=== PATIENT | male | born 1990 | race African-American/Black ===

== ENCOUNTER 2019-10-29 12:58 | Inpatient (IN) | payer SELFPAY ==
[2019-10-29] MEDS ORDERED: PIPERACILLIN/TAZOBACTAM 4.5 GM VIAL IV ONE (13:16)
[2019-10-29] MEDS ORDERED: AZITHROMYCIN INJ 500 MG VIAL IV ONE (13:20)
--- NOTE | 2019-10-29 13:29 | ER Document Report ---
ED General - General Chief Complaint: Overdose Stated Complaint: POSSIBLE OVERDOSE Time Seen by Provider: 10/29/19 13:04 - HPI Notes: Chief complaint: Respiratory distress History of present illness: Previously healthy 29-year-old male taking no regular medications no known allergies has recently been abusing Percocet that he buys off the street. He developed respiratory depression and altered mental status this morning and EMS was called to his residence and he received Narcan intranasal. He was revived with this and they remained on scene for a brief period of time and he refused transport. They subsequently received a follow-up call stating the patient was in respiratory distress. When they arrived he was hypoxemic in the 80s. They put him on nasal O2 and transported him here. He arrived here on 4 L of nasal O2 and was tachypneic and had an O2 sat of around 80%. He denies any other significant medical history. States he has had nonproductive cough since he was given Narcan. He denies chest pain. He is a cigarette smoker. Regularly smokes marijuana. Denies alcohol consumption today. - Related Data Allergies/Adverse Reactions: No Known Allergies Allergy (Verified 10/29/19 13:47) Past Medical History - General Information source: Patient, Emergency Med Personnel, [facility] Records - Social History Smoking Status: Current Every Day Smoker Frequency of alcohol use: Social Drug Abuse: Marijuana, Prescription drugs Occupation: Unemployed Lives with: Spouse/Significant other Family History: Reviewed & Not Pertinent - Medical History Medical History: Negative Surgical Hx: Negative Review of Systems - Review of Systems Notes: Constitutional: Negative for fever. HENT: Negative for sore throat. Eyes: Negative for visual changes. Cardiovascular: Negative for chest pain. Respiratory: As per HPI. Gastrointestinal: Negative for abdominal pain, vomiting or diarrhea. Genitourinary: Negative for dysuria. Musculoskeletal: Negative for back pain. Skin: Negative for rash. Neurological: Negative for headaches, weakness or numbness. 10 point ROS negative except as marked above and in HPI. Physical Exam - Vital signs Vitals: Pulse Ox 79 L 10/29/19 12:58 - Notes Notes: GENERAL: Slender male of approximately stated age who is shivering and appears in acute distress. SKIN: Cool and moist. Good turgor no rashes. HEAD: Normocephalic atraumatic. EYES: PERRLA. EOMI. Conjunctivae and sclerae clear. EARS: CANALS AND TMS CLEAR. NOSE: CLEAR. MOUTH: Moist mucosa. Good dentition. No stridor or edema. No drooling. NECK: Supple. No masses or thyromegaly. No adenopathy. Carotids 2+ without bruits. No JVD. BACK: Symmetrical without tenderness. CHEST: Patient is tachypneic with labored respirations and mild use of accessory muscles. He has coarse rhonchi bilaterally. He has a rattling cough and is bringing up small amount of bloody sputum. HEART: Tachycardic regular rhythm. No murmur gallop or rub. ABDOMEN: Soft nontender without masses, organomegaly or rebound. Bowel sounds normally active. No bruits. GENITALIA: Deferred. EXTREMITIES: No edema. No calf tenderness. Cap refill less than 1.5 seconds. Dorsalis pedis and posterior tibial pulses 3+ and symmetrical. NEUROLOGICAL: GCS 15. Alert and oriented x3. Fluent speech. Cranial nerves II through XII intact. Sensorimotor and cerebellar normal. Normal tone. PSYCHIATRIC: Anxious affect. Course - Re-evaluation Re-evalutation: 10/29/19 13:37 Previously healthy male status post Narcan administration via EMS now presenting with respiratory distress, hypoxemia and hemoptysis. Chest x-ray shows patchy infiltrates bilaterally. Patient is shivering. We are awaiting a rectal temperature. My differential diagnosis this time includes COVID-19 pneumonia, pulmonary aspiration syndrome, sepsis, ARDS, pulmonary edema and community-acquired pneumonia and pulmonary embolus.. Sepsis protocol initiated. COVID swab requested. Patient has been started on BiPAP. IV Zosyn and azithromycin. 10/29/19 13:40 10/29/19 14:28 Patient is doing reasonably well on BiPAP. He still coughing up small amounts of blood. Case discussed with ICU attending recreation technician Dr. Wooten who will see the patient for ICU admission. 10/29/19 15:27 Dr. Wooten is seen the patient in the emergency department and prefers that he go to [facility]. He agrees with current management. He did not feel a chest CT was needed at this point he thinks the primary problem is negative pressure pulmonary edema. Patient has been presented to Dr. Ovalles who will admit to [facility]. - Vital Signs Vital signs: Temp Pulse Resp BP Pulse Ox 98 F 118 H 35 H 117/80 100 10/29/19 13:06 10/29/19 13:06 10/29/19 15:02 10/29/19 15:02 10/29/19 15:02 - Laboratory Result Diagrams: 10/29/19 13:15 10/29/19 13:15 Laboratory results interpreted by me: 10/29/19 10/29/19 10/29/19 13:15 13:15 13:30 WBC 12.9 H RBC 6.00 H MCH 26.8 L Lymph % (Auto) 12.1 L Absolute Neuts (auto) 10.8 H Seg Neutrophils % 83.5 H ABG pH ABG pO2 Potassium 3.4 L Glucose 189 H Lactic Acid 4.7 H AST 149 H ALT 81 H 10/29/19 13:30 WBC RBC MCH Lymph % (Auto) Absolute Neuts (auto) Seg Neutrophils % ABG pH 7.32 L ABG pO2 76.9 L Potassium Glucose Lactic Acid AST ALT - EKG Interpretation by Me When compared to previous EKG there are: Other - Twelve-lead EKG from 1311 hrs. reviewed contemporaneously by me showing sinus tachycardia with a rate of 124. He has a QRS axis of +85 degrees. Intervals are normal. There are no acute ST/T wave changes present. Interpretation: Sinus tachycardia. No prior tracing for comparison. Indication for current study: Tachycardia. Critical Care Note - Critical Care Note Total time excluding time spent on procedures (mins): 65 - BiPAP initiated. Sep sis protocol. Discharge - Discharge Clinical Impression: Bilateral pneumonia, Acute respiratory failure Condition: Critical Disposition: ADMITTED INPATIENT Admitting Provider: Charlette (Hospitalist) Unit Admitted: [facility]
[2019-10-29 13:32] LABS: ABSOLUTE BASOPHILS # (AUTO) 0.1 10^3/uL (0.0-0.2); ABSOLUTE LYMPHOCYTES (AUTO) 1.6 10^3/uL (0.5-4.7); ABSOLUTE MONOCYTES (AUTO) 0.5 10^3/uL (0.1-1.4); ABSOLUTE NEUT (AUTO) 10.8 10^3/uL (1.7-8.2); BASOPHILS % (AUTO) 0.5 % (0-2); EOSINOPHILS % (AUTO) 0.1 % (0-6); HEMATOCRIT 48.7 % (37.9-51.0); HEMOGLOBIN 16.1 g/dL (13.5-17.0); LYMPHOCYTES % (AUTO) 12.1 % (13-45); MEAN CORPUSCULAR HEMOGLOBIN 26.8 pg (27.0-33.4); MEAN CORPUSCULAR HGB CONC 33.1 g/dL (32.0-36.0); MEAN CORPUSCULAR VOLUME 81 fl (80-97); MONOCYTES % (AUTO) 3.8 % (3-13); PLATELET COUNT 180 10^3/uL (150-450); RED CELL DISTRIBUTION WIDTH 13.1 % (11.5-14.0); SEGMENTED NEUTROPHILS % (AUTO) 83.5 % (42-78); TOTAL CELLS COUNTED % (AUTO) 100 %; WHITE BLOOD COUNT 12.9 10^3/uL (4.0-10.5)
[2019-10-29] MEDS ORDERED: DEXAMETHASONE SOD PHOS INJ 10 MG/1 ML VIAL IV ONE (13:44)
[2019-10-29 13:45] LABS: INTERNATIONAL RATION (INR) 0.97; PROTHROMBIN TIME 13.1 SEC (11.4-15.4)
--- NOTE | 2019-10-29 13:50 | RADIOLOGY REPORT (SQ) ---
EXAM DESCRIPTION: CHEST SINGLE VIEW IMAGES COMPLETED DATE/TIME: 10/29/2019 1:41 pm REASON FOR STUDY: bed 1 -abn breath sounds COMPARISON: None. EXAM PARAMETERS: NUMBER OF VIEWS: One view. TECHNIQUE: Single frontal radiographic view of the chest acquired. RADIATION DOSE: NA LIMITATIONS: None. FINDINGS: LUNGS AND PLEURA: Hazy reticulonodular airspace disease throughout both lungs. MEDIASTINUM AND HILAR STRUCTURES: No masses. Contour normal. HEART AND VASCULAR STRUCTURES: Heart normal in size. Normal vasculature. BONES: No acute findings. HARDWARE: None in the chest. OTHER: No other significant finding. IMPRESSION: HAZY AIRSPACE DISEASE THROUGHOUT BOTH LUNGS. TECHNICAL DOCUMENTATION: JOB ID: [id number] 2010 [employer]- All Rights Reserved Reading location - IP/workstation name: [email or web address]
[2019-10-29 13:51] LABS: ALBUMIN 4.5 g/dL (3.5-5.0); ALKALINE PHOSPHATASE 95 U/L (38-126); ANION GAP 9 (5-19); ASPARTATE AMINO TRANSFERASE 149 U/L (17-59); BILIRUBIN,TOTAL 0.5 mg/dL (0.2-1.3); BLOOD UREA NITROGEN 14 mg/dL (7-20); CALCIUM 9.2 mg/dL (8.4-10.2); CARBON DIOXIDE 26 mmol/L (22-30); CHLORIDE 102 mmol/L (98-107); GLUCOSE 189 mg/dL (75-110); POTASSIUM 3.4 mmol/L (3.6-5.0); TOTAL PROTEIN 7.5 g/dL (6.3-8.2)
[2019-10-29 13:56] LABS: ARTERIAL BLOOD BASE EXCESS -3.6 mmol/L; ARTERIAL BLOOD FIO2 100%; ARTERIAL BLOOD H2CO3 1.35 mmol/L (1.05-1.35); ARTERIAL BLOOD HCO3 22.6 mmol/L (20-24); ARTERIAL BLOOD O2 SATURATION 94.4 % (94-98); ARTERIAL BLOOD PCO2 44.7 mmHg (35-45); ARTERIAL BLOOD PH 7.32 (7.35-7.45); ARTERIAL BLOOD PO2 76.9 mmHg (80-100)
[2019-10-29 14:05] LABS: TROPONIN I 0.05 ng/mL
[2019-10-29] MEDS ORDERED: VANCOMYCIN HCL INJ 1000 MG VIAL IV ONE (14:16)
[2019-10-29] MEDS ORDERED: DEXAMETHASONE SOD PHOSPHATE INJ 4 MG/1 ML VIAL ONE (14:20)
[2019-10-29] MEDS ORDERED: ACETAMINOPHEN 325 MG TABLET PO PRN (16:50)
[2019-10-29] MEDS ORDERED: DEXTROSE 50%-WATER 25 GM/50 ML DISP.SYRIN IV PRN ×2 (16:50)
[2019-10-29] MEDS ORDERED: DEXTROSE 40% GEL 15 GM TUBE PO PRN ×2 (16:50)
[2019-10-29] MEDS ORDERED: GLUCAGON,HUMAN RECOMB 1 MG INJ SUBCUT PRN (16:50)
[2019-10-29] MEDS ORDERED: ONDANSETRON 4 MG TAB.RAPDIS PO PRN (16:58)
--- NOTE | 2019-10-29 17:10 | PDOC CONSULTATION ---
Consultation Consult Date: 10/29/19 Provider Consulted: CAMPBELL SALGADO Consult reason:: Possible hematemesis History of Present Illness Admission Date/PCP: 10/29/19 14:41 History of Present Illness: GAGAN LERMA is a 29 year old male I was called by Dr Ovalles on this patient presented to the ED with respiratory distress and was initially referred to ICU for admission patient was seen and felt that he could be managed on the floor Dr Ovalles requesting consult patient could be possibly having hematemesis but the history as noted from the ED attending was hemoptysis his H/H is stable patient likely had overdose on narcotics and initially refused to go to ED he had been givene Narcan in the field but called and presented with further SOB, while GI work up is requested the issue is respiratory he is not a candidate for sedation for now as that would cloud exactly what is happening ICU attending feels it could be negative pressure pulmonary edema there appears to be a COvid 19 testing in progress will wait on results follow up clinically medications to reduce nausea follow up H/H EGD to be at some point once all the other issues have been addressed no history of alcohol use and so not likely to be due varices at best a Leandra Burnham tear, EGD only if has significant drop in his H/H Social History Lives with: Spouse/Significant other Smoking Status: Current Every Day Smoker Family History Family History: Reviewed & Not Pertinent Parental Family History Reviewed: Yes Children Family History Reviewed: Unknown Sibling(s) Family History Reviewed.: Unknown Medication/Allergy Allergies/Adverse Reactions: No Known Allergies Allergy (Verified 10/29/19 13:47) Review of Systems Constitutional: PRESENT: weakness. ABSENT: fever(s), headache(s) Eyes: ABSENT: visual disturbances Ears: ABSENT: hearing changes Nose, Mouth, and Throat: ABSENT: mouth pain, sore throat Respiratory: PRESENT: dyspnea, hemoptysis Gastrointestinal: PRESENT: nausea. ABSENT: vomiting Genitourinary: ABSENT: dysuria, hematuria Musculoskeletal: ABSENT: deformity, joint swelling Integumentary: ABSENT: pruritus Neurological: PRESENT: tingling. ABSENT: syncope, tremor(s), vertigo Endocrine: ABSENT: polydipsia, polyphagia, polyuria Physical Exam Vital Signs: Temp Pulse Resp BP Pulse Ox 98 F 118 H 35 H 117/80 100 10/29/19 13:06 10/29/19 13:06 10/29/19 15:02 10/29/19 15:02 10/29/19 15:02 General appearance: PRESENT: mild distress Head exam: PRESENT: atraumatic, normocephalic Eye exam: PRESENT: EOMI, nystagmus, PERRLA, scleral icterus Mouth exam: PRESENT: moist, neck supple Neck exam: ABSENT: meningismus, tenderness, thyromegaly Respiratory exam: PRESENT: symmetrical. ABSENT: tachypnea, wheezes Cardiovascular exam: PRESENT: RRR, +S1, +S2 GI/Abdominal exam: ABSENT: Mendosa's sign, rebound Extremities exam: ABSENT: joint swelling Musculoskeletal exam: PRESENT: full ROM Neurological exam: ABSENT: altered Skin exam: ABSENT: urticaria, vesicles Results Laboratory Results: 10/29/19 13:15 10/29/19 13:15 10/29/19 10/29/19 10/29/19 13:15 13:15 13:15 WBC 12.9 H RBC 6.00 H Hgb 16.1 Hct 48.7 MCV 81 MCH 26.8 L MCHC 33.1 RDW 13.1 Plt Count 180 Seg Neutrophils % 83.5 H Carbonic Acid HCO3/H2CO3 Ratio ABG pH ABG pCO2 ABG pO2 ABG HCO3 ABG O2 Saturation ABG Base Excess FiO2 Sodium 137.0 Potassium 3.4 L Chloride 102 Carbon Dioxide 26 Anion Gap 9 BUN 14 Creatinine 1.12 Est GFR ( Amer) > 60 Glucose 189 H Lactic Acid Calcium 9.2 Magnesium Cancelled Total Bilirubin 0.5 AST 149 H Alkaline Phosphatase 95 Total Protein 7.5 Albumin 4.5 10/29/19 10/29/19 13:30 13:30 WBC RBC Hgb Hct MCV MCH MCHC RDW Plt Count Seg Neutrophils % Carbonic Acid 1.35 HCO3/H2CO3 Ratio 16:1 ABG pH 7.32 L ABG pCO2 44.7 ABG pO2 76.9 L ABG HCO3 22.6 ABG O2 Saturation 94.4 ABG Base Excess -3.6 FiO2 100% Sodium Potassium Chloride Carbon Dioxide Anion Gap BUN Creatinine Est GFR ( Amer) Glucose Lactic Acid 4.7 H Calcium Magnesium Total Bilirubin AST Alkaline Phosphatase Total Protein Albumin 10/29/19 13:15 Troponin I 0.050 NT-Pro-B Natriuret Pep 16 Impressions: Chest X-Ray 10/29/19 00:00 IMPRESSION: HAZY AIRSPACE DISEASE THROUGHOUT BOTH LUNGS. Assessment & Plan - Diagnosis (1) Hematemesis Plan: Respiratory issues have not been stabilized yet patient will need to be breathing comfortably off oxygen with a sat>95% drug screen to see if any other drugs besides narcotics causing his hypoxia await Covid 19 testing check H/H monitor for symptoms antiemetics to reduce nausea, Zofran can be used patient currently not a candidate for for sedation by anesthesia for now will follow spoke with Dr Ovalles - Time Time Spent: 50 to 70 Minutes
--- NOTE | 2019-10-29 17:15 | PDOC H&P ---
History of Present Illness Admission Date/PCP: 10/29/19 14:41 Patient complains of: dyspnea History of Present Illness: GAGAN LERMA is a 29 year old male who presents to the hospital with complaints of dyspnea. Earlier today, patient got a narcotic tablet which he was told was oxycodone 30 mg off a friend. He ingested it and later became unresponsive. EMS was called and they administered intranasal Narcan after which he became responsive. At that point he declined being brought to the hospital because he felt fine. However shortly after EMS was called back to the location because he was feeling dyspneic. At that time he was found to be hypoxic and brought to the hospital. In the hospital, patient was 79% on room air on initial presentation. He had to be placed on 100% BiPAP. Patient also noted to have some episodes of hematemesis. He denies any abdominal pain no previous vomiting episodes earlier today or prior. Denies prior episodes of hematemesis. Also denies prior episodes of dyspnea prior to the incident today. Denies any history of cirrhosis. Denies alcohol use. Past Medical History Medical History: None Past Surgical History Past Surgical History: Reports: None Social History Lives with: Spouse/Significant other Smoking Status: Current Every Day Smoker Frequency of Alcohol Use: None Hx Recreational Drug Use: Yes - Advance Directive Resuscitation Status: Full Code Family History Family History: None Parental Family History Reviewed: Yes Children Family History Reviewed: NA Sibling(s) Family History Reviewed.: NA Medication/Allergy Allergies/Adverse Reactions: No Known Allergies Allergy (Verified 10/29/19 13:47) Review of Systems Constitutional: ABSENT: fatigue, fever(s) Eyes: ABSENT: visual disturbances Ears: ABSENT: hearing changes Cardiovascular: ABSENT: chest pain Respiratory: PRESENT: dyspnea. ABSENT: cough Gastrointestinal: PRESENT: hematemesis. ABSENT: abdominal pain, hematochezia, melena, nausea Genitourinary: ABSENT: dysuria Integumentary: ABSENT: diaphoresis Neurological: ABSENT: confusion, dizziness Endocrine: ABSENT: polyuria Physical Exam Vital Signs: Temp Pulse Resp BP Pulse Ox 98 F 118 H 35 H 117/80 100 10/29/19 13:06 10/29/19 13:06 10/29/19 15:02 10/29/19 15:02 10/29/19 15:02 General appearance: PRESENT: no acute distress, cooperative Head exam: PRESENT: atraumatic Mouth exam: PRESENT: moist, neck supple, tongue midline. ABSENT: laceration Throat exam: PRESENT: post pharyngeal erythema - Mild but no evidence of laceration Neck exam: ABSENT: JVD Respiratory exam: PRESENT: clear to auscultation diamond, symmetrical, unlabored. ABSENT: tachypnea, wheezes Cardiovascular exam: PRESENT: RRR, +S1, +S2. ABSENT: tachycardia GI/Abdominal exam: PRESENT: soft. ABSENT: rebound, rigid, tenderness Extremities exam: ABSENT: pedal edema Neurological exam: PRESENT: alert, awake, oriented to person, oriented to place, oriented to time, oriented to situation Psychiatric exam: ABSENT: agitated, anxious Focused psych exam: ABSENT: pressured speech Skin exam: ABSENT: jaundice, pallor Results Laboratory Results: 10/29/19 13:15 10/29/19 13:15 10/29/19 10/29/19 10/29/19 13:15 13:15 13:15 WBC 12.9 H RBC 6.00 H Hgb 16.1 Hct 48.7 MCV 81 MCH 26.8 L MCHC 33.1 RDW 13.1 Plt Count 180 Seg Neutrophils % 83.5 H Carbonic Acid HCO3/H2CO3 Ratio ABG pH ABG pCO2 ABG pO2 ABG HCO3 ABG O2 Saturation ABG Base Excess FiO2 Sodium 137.0 Potassium 3.4 L Chloride 102 Carbon Dioxide 26 Anion Gap 9 BUN 14 Creatinine 1.12 Est GFR ( Amer) > 60 Glucose 189 H Lactic Acid Calcium 9.2 Magnesium Cancelled Total Bilirubin 0.5 AST 149 H Alkaline Phosphatase 95 Total Protein 7.5 Albumin 4.5 10/29/19 10/29/19 13:30 13:30 WBC RBC Hgb Hct MCV MCH MCHC RDW Plt Count Seg Neutrophils % Carbonic Acid 1.35 HCO3/H2CO3 Ratio 16:1 ABG pH 7.32 L ABG pCO2 44.7 ABG pO2 76.9 L ABG HCO3 22.6 ABG O2 Saturation 94.4 ABG Base Excess -3.6 FiO2 100% Sodium Potassium Chloride Carbon Dioxide Anion Gap BUN Creatinine Est GFR ( Amer) Glucose Lactic Acid 4.7 H Calcium Magnesium Total Bilirubin AST Alkaline Phosphatase Total Protein Albumin 10/29/19 13:15 Troponin I 0.050 NT-Pro-B Natriuret Pep 16 Impressions: Chest X-Ray 10/29/19 00:00 IMPRESSION: HAZY AIRSPACE DISEASE THROUGHOUT BOTH LUNGS. Assessment and Plan - Diagnosis (1) Acute respiratory failure with hypoxia Is this a current diagnosis for this admission?: Yes Plan: Patient significantly hypoxic on presentation. Placed on BiPAP. During my encounter with patient I took BiPAP off and patient seemed to be maintaining sats >90% even on room air throughout encounter. However later informed by patient's nurse that patient desatted and needed to go back on nasal cannula then back on BiPAP. Currently on BiPAP 02/22 100% but we will try to wean as tolerated Chest x-ray shows interstitial opacities bilaterally Has been evaluated by property accountant who states that patient does not need ICU level of care at this time and the patient likely has negative pressure pulmonary edema following his overdose I will leave patient on BiPAP tonight and try some diuresis. Has been tested for COVID 19 in ER. Received antibiotics in the ER which I will hold for now Check stat CT chest (2) Hematemesis Qualifiers: Nausea presence: without nausea Qualified Code(s): K92.0 - Hematemesis Is this a current diagnosis for this admission?: Yes Plan: This seems to be the first time patient has had this episode. He has denied any history of cirrhosis and does not consume alcohol. He did have a significant amount of hematemesis seen plastic bag Have consulted gastroenterology who recommends conservative management for possible Leandra-Burnham tear for now I will put patient on Protonix IV Keep on telemetry. Type and screen. Monitor closely. Keep n.p.o. for now NGT lavage (3) Opioid overdose Qualifiers: Encounter type: initial encounter Injury intent: accidental or unintentional Qualified Code(s): T40.2X1A - Poisoning by other opioids, accidental (unintentional), initial encounter Is this a current diagnosis for this admission?: Yes Plan: Seems to have overdosed from a pill which he got off his friend and thought it was oxycodone. He is uncertain if it was in fact something else Check urine drug screen Currently is mentating well and fully awake and alert and conversational - Time Time Spent with patient: 35 or more minutes Anticipated Discharge Disposition: Home, Self Care Anticipated Discharge Timeframe: within 48 hours
[2019-10-29] MEDS ORDERED: FUROSEMIDE INJ/PF 40 MG/4 ML SDV IV ONE (17:30)
[2019-10-29] MEDS ORDERED: FUROSEMIDE INJ/PF 100 MG/10 ML SDV IV ONE ×2 (19:00→23:59)
[2019-10-29] MEDS: PANTOPRAZOLE SODIUM 40 MG VIAL IV SCH (19:11)
--- NOTE | 2019-10-29 19:30 | EKG REPORT ---
SEVERITY:- OTHERWISE NORMAL ECG - SINUS TACHYCARDIA : Confirmed by: Geo Spears MD 29-Oct-2019 19:29:15
[2019-10-29 20:03] LABS: APPEARANCE,URINE SLIGHTLY-CLOUDY; BILIRUBIN,URINE NEGATIVE (NEGATIVE); COLOR,URINE YELLOW; GLUCOSE, URINE 50 mg/dL (NEGATIVE); KETONES,URINE NEGATIVE (NEGATIVE); PROTEIN,URINE 100 mg/dL (NEGATIVE); UROBILINOGEN,URINE NEGATIVE mg/dL (<2.0)
[2019-10-29 20:13] LABS: URINE AMPHETAMINES SCREEN NEGATIVE; URINE BARBITURATES SCREEN NEGATIVE; URINE BENZODIAZEPINES SCREEN NEGATIVE; URINE COCAINE SCREEN NEGATIVE; URINE METHADONE SCREEN NEGATIVE; URINE PHENCYCLIDINE SCREEN NEGATIVE
[2019-10-29 20:16] LABS: URINE MARIJUANA (THC) SCREEN UNCONFIRMED POSITIVE
--- NOTE | 2019-10-29 23:23 | RADIOLOGY REPORT (SQ) ---
CT angiogram chest with contrast on 10/29/2019 at 10:43 PM CLINICAL INDICATION: Shortness of breath TECHNIQUE: Multiple axial images are obtained throughout the chest following the administration of IV contrast. Computer generated 3D reconstructions/MIPS were performed. This exam was performed according to our departmental dose-optimization program, which includes automated exposure control, adjustment of the mA and/or kV according to patient size and/or use of iterative reconstruction technique. Total DLP is 673.24 mGy*cm. COMPARISON: None FINDINGS: There is no thoracic aortic aneurysm or dissection. Limited visualized upper abdomen is unremarkable. There is no pleural or pericardial effusion. There are no filling defects within the pulmonary arteries to suggest pulmonary embolus. There are fairly extensive bilateral groundglass predominant opacities that appear to be more central predominant but do also involve the periphery of the lungs with some airspace disease in the left lower lobe. There is also some crazy paving in the left upper lung. Findings are consistent with likely infectious etiology. Differential diagnosis would include viral infections. There is some pneumomediastinum with air along the right aspect of the distal esophagus and seen well just below the level of the amrais on axial image 58 extending over into the left hilar region. No pneumothorax is noted. No bony abnormality is noted. IMPRESSION: 1. No evidence of pulmonary embolus. 2. Commonly reported imaging features of COVID 19 pneumonia are present. Other processes such as influenza pneumonia and organizing pneumonia, as can be seen with drug toxicity and connective tissue disease, can cause similar imaging pattern. [PneTyp] 3. Pneumomediastinum also raises a question of COVID 19 as the etiology. If there is high clinical concern for esophageal injury then consider water-soluble esophagram or repeat CT of the chest following oral administration of water-soluble contrast.
[2019-10-29 23:51] LABS: HEMATOCRIT 47.3 % (37.9-51.0); HEMOGLOBIN 15.6 g/dL (13.5-17.0); MEAN CORPUSCULAR HEMOGLOBIN 26.6 pg (27.0-33.4); MEAN CORPUSCULAR HGB CONC 32.9 g/dL (32.0-36.0); MEAN CORPUSCULAR VOLUME 81 fl (80-97); PLATELET COUNT 153 10^3/uL (150-450); RED BLOOD COUNT 5.86 10^6/uL (4.35-5.55); WHITE BLOOD COUNT 21.6 10^3/uL (4.0-10.5)
[2019-10-30] MEDS: PANTOPRAZOLE SODIUM 40 MG VIAL IV SCH ×2 (05:46→18:02)
[2019-10-30 05:47] LABS: HEMATOCRIT 47.5 % (37.9-51.0); MEAN CORPUSCULAR HGB CONC 33.7 g/dL (32.0-36.0); MEAN CORPUSCULAR VOLUME 80 fl (80-97); PLATELET COUNT 163 10^3/uL (150-450); RED BLOOD COUNT 5.94 10^6/uL (4.35-5.55); RED CELL DISTRIBUTION WIDTH 12.8 % (11.5-14.0); WHITE BLOOD COUNT 20.9 10^3/uL (4.0-10.5)
[2019-10-30 06:10] LABS: ANION GAP 8 (5-19); BLOOD UREA NITROGEN 17 mg/dL (7-20); CALCIUM 9.9 mg/dL (8.4-10.2); CARBON DIOXIDE 30 mmol/L (22-30); CHLORIDE 99 mmol/L (98-107); GLUCOSE 133 mg/dL (75-110); PHOSPHORUS 3.3 mg/dL (2.5-4.5)
[2019-10-30 06:22] LABS: POTASSIUM 4.6 mmol/L (3.6-5.0)
--- NOTE | 2019-10-30 08:02 | Progress Note ---
Provider Note Provider Note: H and H stable over multiple draws ? hemoptysis vs hematemesis BUN /Creat ratio does not suggest UGIB Covid 19 test pending no further symptoms antiemetic and PPI
[2019-10-30] MEDS: ASCORBIC ACID 500 MG TABLET PO SCH (10:27)
[2019-10-30] MEDS: ZINC SULFATE 220 MG CAPSULE PO SCH (10:27)
[2019-10-30] MEDS: CHOLECALCIFEROL (D3) 1,000 UNIT (25 MCG) TABLET PO SCH (10:27)
[2019-10-30] MEDS ORDERED: AMPICILLIN SODIUM/SULBACTAM NA 3 GM in NORMAL SALINE 100 ML IV SCH (12:00)
[2019-10-30] MEDS ORDERED: FUROSEMIDE INJ/PF 40 MG/4 ML SDV IV ONE (12:00)
[2019-10-30] MEDS ORDERED: AMPICILLIN SOD/SULBACTAM 3 GM VIAL IV SCH (12:00)
--- NOTE | 2019-10-30 12:06 | PDOC PROGRESS REPORT ---
Subjective Progress Note for:: 10/30/19 Subjective:: Patient is breathing a lot better today. Able to de-escalate him to 3 L nasal cannula this morning. He also states that his hematemesis has resolved and has not had any recurrence since yesterday evening. Denies any previous dyspnea prior to the event yesterday. Reason For Visit: HYPOXIA,UGI BLEED, DRUG OVERDOSE Physical Exam Vital Signs: Temp Pulse Resp BP Pulse Ox 97.8 F 75 18 127/81 H 100 10/30/19 04:00 10/30/19 07:00 10/30/19 04:00 10/30/19 04:00 10/30/19 04:00 Intake & Output 10/29/19 10/30/19 10/31/19 06:59 06:59 06:59 Intake Total 0 Output Total 400 Balance -400 Weight 102.9 kg General appearance: PRESENT: no acute distress, cooperative Neck exam: ABSENT: JVD Respiratory exam: PRESENT: clear to auscultation diamond, symmetrical, unlabored. ABSENT: tachypnea, wheezes Cardiovascular exam: PRESENT: RRR, +S1, +S2. ABSENT: tachycardia GI/Abdominal exam: PRESENT: soft. ABSENT: rebound, rigid, tenderness Extremities exam: ABSENT: pedal edema Neurological exam: PRESENT: alert, awake, oriented to person, oriented to place, oriented to time, oriented to situation Psychiatric exam: PRESENT: appropriate affect. ABSENT: agitated, anxious Focused psych exam: ABSENT: pressured speech Skin exam: ABSENT: jaundice Results Laboratory Results: 10/30/19 05:21 10/30/19 05:21 10/29/19 10/29/19 10/29/19 13:15 13:15 13:15 WBC 12.9 H RBC 6.00 H Hgb 16.1 Hct 48.7 MCV 81 MCH 26.8 L MCHC 33.1 RDW 13.1 Plt Count 180 Seg Neutrophils % 83.5 H Carbonic Acid HCO3/H2CO3 Ratio ABG pH ABG pCO2 ABG pO2 ABG HCO3 ABG O2 Saturation ABG Base Excess FiO2 Sodium 137.0 Potassium 3.4 L Chloride 102 Carbon Dioxide 26 Anion Gap 9 BUN 14 Creatinine 1.12 Est GFR ( Amer) > 60 Glucose 189 H Lactic Acid Calcium 9.2 Phosphorus Magnesium Cancelled Total Bilirubin 0.5 AST 149 H Alkaline Phosphatase 95 Total Protein 7.5 Albumin 4.5 Urine Color Urine Appearance Urine pH Ur Specific [place] Urine Protein Urine Glucose (UA) Urine Ketones Urine Blood Urine RBC (Auto) Blood Type Antibody Screen 10/29/19 10/29/19 10/29/19 13:30 13:30 16:48 WBC RBC Hgb Hct MCV MCH MCHC RDW Plt Count Seg Neutrophils % Carbonic Acid 1.35 HCO3/H2CO3 Ratio 16:1 ABG pH 7.32 L ABG pCO2 44.7 ABG pO2 76.9 L ABG HCO3 22.6 ABG O2 Saturation 94.4 ABG Base Excess -3.6 FiO2 100% Sodium Potassium Chloride Carbon Dioxide Anion Gap BUN Creatinine Est GFR ( Amer) Glucose Lactic Acid 4.7 H 2.9 H Calcium Phosphorus Magnesium Total Bilirubin AST Alkaline Phosphatase Total Protein Albumin Urine Color Urine Appearance Urine pH Ur Specific [place] Urine Protein Urine Glucose (UA) Urine Ketones Urine Blood Urine RBC (Auto) Blood Type Antibody Screen 10/29/19 10/29/19 10/29/19 16:59 16:59 19:10 WBC RBC Hgb Hct MCV MCH MCHC RDW Plt Count Seg Neutrophils % Carbonic Acid HCO3/H2CO3 Ratio ABG pH ABG pCO2 ABG pO2 ABG HCO3 ABG O2 Saturation ABG Base Excess FiO2 Sodium Potassium Chloride Carbon Dioxide Anion Gap BUN Creatinine Est GFR ( Amer) Glucose Lactic Acid Calcium Phosphorus Magnesium 1.7 Total Bilirubin AST Alkaline Phosphatase Total Protein Albumin Urine Color YELLOW Urine Appearance SLIGHTLY-CLOUDY Urine pH 5.0 Ur Specific [place] 1.020 Urine Protein 100 H Urine Glucose (UA) 50 H Urine Ketones NEGATIVE Urine Blood NEGATIVE Urine RBC (Auto) 0 Blood Type O POSITIVE Antibody Screen NEGATIVE 10/29/19 10/29/19 10/30/19 20:06 23:41 05:21 WBC 21.6 H 20.9 H RBC 5.86 H 5.94 H Hgb 15.6 16.0 Hct 47.3 47.5 MCV 81 80 MCH 26.6 L 27.0 MCHC 32.9 33.7 RDW 13.0 12.8 Plt Count 153 163 Seg Neutrophils % Carbonic Acid HCO3/H2CO3 Ratio ABG pH ABG pCO2 ABG pO2 ABG HCO3 ABG O2 Saturation ABG Base Excess FiO2 Sodium Potassium Chloride Carbon Dioxide Anion Gap BUN Creatinine Est GFR ( Amer) Glucose Lactic Acid 2.8 H Calcium Phosphorus Magnesium Total Bilirubin AST Alkaline Phosphatase Total Protein Albumin Urine Color Urine Appearance Urine pH Ur Specific [place] Urine Protein Urine Glucose (UA) Urine Ketones Urine Blood Urine RBC (Auto) Blood Type Antibody Screen 10/30/19 10/30/19 05:21 05:21 WBC RBC Hgb Hct MCV MCH MCHC RDW Plt Count Seg Neutrophils % Carbonic Acid HCO3/H2CO3 Ratio ABG pH ABG pCO2 ABG pO2 ABG HCO3 ABG O2 Saturation ABG Base Excess FiO2 Sodium 137.1 Potassium 4.6 D Chloride 99 Carbon Dioxide 30 Anion Gap 8 BUN 17 Creatinine 1.00 Est GFR ( Amer) > 60 Glucose 133 H Lactic Acid 1.7 Calcium 9.9 Phosphorus 3.3 Magnesium 1.8 Total Bilirubin AST Alkaline Phosphatase Total Protein Albumin Urine Color Urine Appearance Urine pH Ur Specific [place] Urine Protein Urine Glucose (UA) Urine Ketones Urine Blood Urine RBC (Auto) Blood Type Antibody Screen 10/29/19 13:15 Troponin I 0.050 NT-Pro-B Natriuret Pep 16 Impressions: Chest X-Ray 10/29/19 00:00 IMPRESSION: HAZY AIRSPACE DISEASE THROUGHOUT BOTH LUNGS. Chest/Abdomen CTA 10/29/19 00:00 IMPRESSION: 1. No evidence of pulmonary embolus. 2. Commonly reported imaging features of COVID 19 pneumonia are present. Other processes such as influenza pneumonia and organizing pneumonia, as can be seen with drug toxicity and connective tissue disease, can cause similar imaging pattern. [PneTyp] 3. Pneumomediastinum also raises a question of COVID 19 as the etiology. If there is high clinical concern for esophageal injury then consider water-soluble esophagram or repeat CT of the chest following oral administration of water-soluble contrast. Assessment and Plan - Diagnosis (1) Acute respiratory failure with hypoxia Is this a current diagnosis for this admission?: Yes Plan: Patient's hypoxia has improved and we have been able to take him off BiPAP and he is down to 3 L nasal cannula today. The exact cause of his hypoxia is still on the question but this possibilities include Acute pulmonary edema [especially as patient seems to have responded very nicely to the IV Lasix 60mg he got yesterday] or bacterial/viral pneumonia [supported by leukocytosis] As patient's dyspnea seems to have started yesterday and not prior to yesterday's event, viral pneumonia is less likely. I will give patient 1 dose of IV Lasix 40 mg today and we will continue to try to wean his oxygen. (2) Hematemesis Qualifiers: Nausea presence: without nausea Qualified Code(s): K92.0 - Hematemesis Is this a current diagnosis for this admission?: Yes Plan: Hematemesis seems to have resolved at this point as he has not had any episodes since yesterday evening. Suspicion is for Leandra-Burnham tear. His chest CTA did show pneumomediastinum which could also support Leandra-Burnham tear. Check esophagram with water-soluble dye Hemoglobin is stable Continue Protonix (3) Opioid overdose Qualifiers: Encounter type: initial encounter Injury intent: accidental or unintentional Qualified Code(s): T40.2X1A - Poisoning by other opioids, accidental (unintentional), initial encounter Is this a current diagnosis for this admission?: Yes Plan: UDS positive for marijuana only. Patient states he suspect his friend gave him fentanyl instead of oxycodone. Mentating well. At baseline. (4) Lung infiltrate on CT Is this a current diagnosis for this admission?: Yes Plan: Negative for PE. Differential includes acute pulmonary edema or bacterial/viral pneumonia We will empirically treat to cover COVID-19 with dexamethasone and supplements pending test results We will also start on Unasyn to cover for bacterial pneumonia especially in case patient may have aspirated during his episode of toxic encephalopathy (5) Leukocytosis Qualifiers: Leukocytosis type: unspecified Qualified Code(s): D72.829 - Elevated white blood cell count, unspecified Is this a current diagnosis for this admission?: Yes Plan: May be secondary to pneumonia and/or dexamethasone which was received yesterday. WBC count is 20,000. Continue to monitor CBC. (6) Person under investigation for COVID-19 Is this a current diagnosis for this admission?: Yes Plan: Awaiting test results. - Time Time Spent with patient: 15-24 minutes Anticipated Discharge Disposition: Home, Self Care Anticipated Discharge Timeframe: within 48 hours
--- NOTE | 2019-10-30 12:36 | RADIOLOGY REPORT (SQ) ---
EXAM DESCRIPTION: BARIUM SWALLOW ESOPHAGUS IMAGES COMPLETED DATE/TIME: 10/30/2019 10:14 am REASON FOR STUDY: hematemesis,pneumomediast, mallorweiss? NOT BARIUM COMPARISON: None. TECHNIQUE: Under fluoroscopic guidance, patient ingested water-soluble contrast. Fluoroscopic spot i mages and routine radiographic images acquired and stored on PACS. 12 MM BARIUM TABLET GIVEN: No LIMITATIONS: None. FLUOROSCOPY TIME: 2.04 minutes. 7 images saved to PACS. FINDINGS: NEUROMUSCULAR COORDINATION OF SWALLOW: Normal. No aspiration. ESOPHAGEAL MOTILITY: Normal peristalsis. No esophageal spasm. ESOPHAGEAL MUCOSA: Normal mucosa without masses or ulceration. GASTRO-ESOPHAGEAL JUNCTION: No evidence for contrast extravasation. No hiatal hernia or reflux. NON-GI TRACT STRUCTURES: No significant finding. OTHER: No other finding. IMPRESSION: NORMAL SINGLE CONTRAST SWALLOW, WITHOUT EVIDENCE FOR CONTRAST EXTRAVASATION. COMMENT: NONE Quality ID [id number]: Final reports for procedures using fluoroscopy that document radiation exposure javier karla, or exposure time and number of fluorographic images (if radiation exposure indices are not avail able) TECHNICAL DOCUMENTATION: JOB ID: [id number] 2010 [employer]- All Rights Reserved Reading location - IP/workstation name: [email or web address]
[2019-10-30] MEDS: DEXAMETHASONE SOD PHOSPHATE INJ 4 MG/1 ML VIAL IV SCH ×2 (13:14→22:34)
[2019-10-30] MEDS: AMPICILLIN SODIUM/SULBACTAM NA 3 GM in NORMAL SALINE 100 ML IV SCH ×2 (18:02→23:47)
[2019-10-31] MEDS: DEXAMETHASONE SOD PHOSPHATE INJ 4 MG/1 ML VIAL IV SCH ×2 (06:12→13:26)
[2019-10-31] MEDS: PANTOPRAZOLE SODIUM 40 MG VIAL IV SCH (06:13)
[2019-10-31] MEDS: AMPICILLIN SODIUM/SULBACTAM NA 3 GM in NORMAL SALINE 100 ML IV SCH ×2 (06:13→13:26)
--- NOTE | 2019-10-31 07:59 | Progress Note ---
Provider Note Provider Note: Covid 19 testing in progress had esophageal barium swallow yesterday which was negative patient has had no further symptoms H/H has been stable EGD will be of very low yield likely can defer EGD for now unless symptoms recur please call if needed
[2019-10-31] MEDS: CHOLECALCIFEROL (D3) 1,000 UNIT (25 MCG) TABLET PO SCH (10:34)
[2019-10-31] MEDS: ZINC SULFATE 220 MG CAPSULE PO SCH (10:34)
[2019-10-31] MEDS: ASCORBIC ACID 500 MG TABLET PO SCH (10:34)
--- NOTE | 2019-10-31 16:00 | PDOC DISCHARGE SUMMARY ---
Impression - Admit/DC Date/PCP Admission Date/Primary Care Provider: 10/29/19 14:41 Discharge Date: 10/31/19 - Discharge Diagnosis (1) Acute respiratory failure with hypoxia Is this a current diagnosis for this admission?: Yes (2) Hematemesis Is this a current diagnosis for this admission?: Yes (3) Opioid overdose Is this a current diagnosis for this admission?: Yes (4) Lung infiltrate on CT Is this a current diagnosis for this admission?: Yes (5) Leukocytosis Is this a current diagnosis for this admission?: Yes (6) Aspiration pneumonia Is this a current diagnosis for this admission?: Yes (7) Leandra-Burnham tear Is this a current diagnosis for this admission?: Yes - Additional Information Resuscitation Status: Full Code Discharge Diet: Regular Discharge Activity: Activity As Tolerated [facility]: [facility] [NO [facility]AL MD] - Prescriptions: Amoxicillin/Potassium Clav [Augmentin 875-125 Tablet] 1 tab PO Q12 #10 tablet Home Medications: Amoxicillin/Potassium Clav [Augmentin 875-125 Tablet] 1 tab PO Q12 #10 tablet 10/31/19 History of Present Illiness History of Present Illness: GAGAN LERMA is a 29 year old male who presents to the hospital with complaints of dyspnea. Earlier today, patient got a narcotic tablet which he was told was oxycodone 30 mg off a friend. He ingested it and later became unresponsive. EMS was called and they administered intranasal Narcan after which he became responsive. At that point he declined being brought to the hospital because he felt fine. However shortly after EMS was called back to the location because he was feeling dyspneic. At that time he was found to be hypoxic and brought to the hospital. In the hospital, patient was 79% on room air on initial presentation. He had to be placed on 100% BiPAP. Patient also noted to have some episodes of hematemesis. He denies any abdominal pain no previous vomiting episodes earlier today or prior. Denies prior episodes of hematemesis. Also denies prior episodes of dyspnea prior to the incident today. Denies any history of cirrhosis. Denies alcohol use. Hospital Course Hospital Course: Patient initially presented to the hospital after episode of toxic encephalopathy secondary to narcotic overdose. He states he was giving a substance which he thought was oxycodone but suspect it was fentanyl. He was found unresponsive in his home when he was given Narcan. The ER patient was noted to be significantly hypoxic with SPO2 in the 70s. He initially required placement 100% FiO2 on BiPAP. His blood gas however did not show any CO2 retention. Blood work was significant for leukocytosis. Chest CT scan revealed bilateral lung infiltrates with a somewhat interstitial pattern. This was somewhat concerning for pneumonia and/or pulmonary edema. He was evaluated by the mandolin repairer who recommended that patient may have been experiencing negative pressure pulmonary edema on his respiratory failure from his drug overdose. However patient did not meet ICU criteria and was admitted to the [facility]. Patient was given 2 days of IV Lasix and started on Unasyn with suspicion of acute pulmonary edema or aspiration pneumonia. Patient was weaned off oxygen over the course of 2 days. Yesterday he was on 3 L nasal cannula and this morning he was completely taken off all oxygen and has been saturating in the high 90s on room air. Patient will be discharged on Augmentin for 5 more days for treatment of possible aspiration pneumonia. No need to continue Lasix at this point. Patient did receive dexamethasone IV during this hospitalization while his COVID test was pending and this may likely have contributed to his significant leukocytosis. COVID-19 test has come back negative. Patient also experienced hematemesis initially on presentation. This seems to have resolved after having a few bouts in the ER. GI was consulted who recommended initially holding off until patient's respiratory symptoms improved. Esophagram was done which showed no extravasation of contrast. CT chest did show some small amount of pneumomediastinum. The suspicion currently is that patient may have had a small Leandra-Burnham tear from vomiting leading to his hematemesis. Hemoglobin has remained stable. GI today recommends foregoing EGD for now as hematemesis has resolved and EGD will be of very low yield at this point. Physical Exam Vital Signs: Temp Pulse Resp BP Pulse Ox 98.6 F 86 17 128/79 H 100 10/31/19 07:33 10/31/19 14:00 10/31/19 07:33 10/31/19 07:33 10/31/19 07:33 Intake & Output 10/30/19 10/31/19 11/01/19 06:59 06:59 06:59 Intake Total 0 320 200 Output Total 400 500 Balance -400 -180 200 Weight 102.9 kg General appearance: PRESENT: no acute distress, cooperative Neck exam: ABSENT: JVD Respiratory exam: PRESENT: crackles - mild still present, symmetrical, unlabored. ABSENT: tachypnea, wheezes Cardiovascular exam: PRESENT: +S1, +S2. ABSENT: tachycardia Neurological exam: PRESENT: alert, awake, oriented to person, oriented to place, oriented to time Results Laboratory Results: WBC 20.9 10^3/uL (4.0-10.5) H 10/30/19 05:21 RBC 5.94 10^6/uL (4.35-5.55) H 10/30/19 05:21 Hgb 16.0 g/dL (13.5-17.0) 10/30/19 05:21 Hct 47.5 % (37.9-51.0) 10/30/19 05:21 MCV 80 fl (80-97) 10/30/19 05:21 MCH 27.0 pg (27.0-33.4) 10/30/19 05:21 MCHC 33.7 g/dL (32.0-36.0) 10/30/19 05:21 RDW 12.8 % (11.5-14.0) 10/30/19 05:21 Plt Count 163 10^3/uL (150-450) 10/30/19 05:21 Lymph % (Auto) 12.1 % (13-45) L 10/29/19 13:15 [place] % (Auto) 3.8 % (3-13) 10/29/19 13:15 Eos % (Auto) 0.1 % (0-6) 10/29/19 13:15 Baso % (Auto) 0.5 % (0-2) 10/29/19 13:15 Absolute Neuts (auto) 10.8 10^3/uL (1.7-8.2) H 10/29/19 13:15 Absolute Lymphs (auto) 1.6 10^3/uL (0.5-4.7) 10/29/19 13:15 Absolute Monos (auto) 0.5 10^3/uL (0.1-1.4) 10/29/19 13:15 Absolute Eos (auto) 0.0 10^3/uL (0.0-0.6) 10/29/19 13:15 Absolute Basos (auto) 0.1 10^3/uL (0.0-0.2) 10/29/19 13:15 Seg Neutrophils % 83.5 % (42-78) H 10/29/19 13:15 PT 13.1 SEC (11.4-15.4) 10/29/19 13:15 INR 0.97 10/29/19 13:15 APTT 27.4 SEC (23.5-35.8) 10/30/19 05:21 Carbonic Acid 1.35 mmol/L (1.05-1.35) 10/29/19 13:30 HCO3/H2CO3 Ratio 16:1 10/29/19 13:30 ABG pH 7.32 (7.35-7.45) L 10/29/19 13:30 ABG pCO2 44.7 mmHg (35-45) 10/29/19 13:30 ABG pO2 76.9 mmHg (80-100) L 10/29/19 13:30 ABG HCO3 22.6 mmol/L (20-24) 10/29/19 13:30 ABG Total CO2 24.0 mmol/L (23-27) 10/29/19 13:30 ABG O2 Saturation 94.4 % (94-98) 10/29/19 13:30 ABG Base Excess -3.6 mmol/L 10/29/19 13:30 FiO2 100% 10/29/19 13:30 Sodium 137.1 mmol/L (137-145) 10/30/19 05:21 Potassium 4.6 mmol/L (3.6-5.0) D 10/30/19 05:21 Chloride 99 mmol/L (98-107) 10/30/19 05:21 Carbon Dioxide 30 mmol/L (22-30) 10/30/19 05:21 Anion Gap 8 (5-19) 10/30/19 05:21 BUN 17 mg/dL (7-20) 10/30/19 05:21 Creatinine 1.00 mg/dL (0.52-1.25) 10/30/19 05:21 Est GFR ( Amer) > 60 (>60) 10/30/19 05:21 Est GFR (MDRD) Non-Af > 60 (>60) 10/30/19 05:21 Glucose 133 mg/dL (75-110) H 10/30/19 05:21 Lactic Acid 1.7 mmol/L (0.7-2.1) 10/30/19 05:21 Calcium 9.9 mg/dL (8.4-10.2) 10/30/19 05:21 Phosphorus 3.3 mg/dL (2.5-4.5) 10/30/19 05:21 Magnesium 1.8 mg/dL (1.6-2.3) 10/30/19 05:21 Total Bilirubin 0.5 mg/dL (0.2-1.3) 10/29/19 13:15 Direct Bilirubin 0.0 mg/dL (0.0-0.4) 10/29/19 13:15 Neonat Total Bilirubin Not Reportable 10/29/19 13:15 Neonat Direct Bilirubin Not Reportable 10/29/19 13:15 Neonat Indirect Bili Not Reportable 10/29/19 13:15 AST 149 U/L (17-59) H 10/29/19 13:15 ALT 81 U/L (<50) H 10/29/19 13:15 Alkaline Phosphatase 95 U/L (38-126) 10/29/19 13:15 Troponin I 0.050 ng/mL 10/29/19 13:15 NT-Pro-B Natriuret Pep 16 pg/mL (<125) 10/29/19 13:15 Total Protein 7.5 g/dL (6.3-8.2) 10/29/19 13:15 Albumin 4.5 g/dL (3.5-5.0) 10/29/19 13:15 Urine Color YELLOW 10/29/19 19:10 Urine Appearance SLIGHTLY-CLOUDY 10/29/19 19:10 Urine pH 5.0 (5.0-9.0) 10/29/19 19:10 Ur Specific [place] 1.020 10/29/19 19:10 Urine Protein 100 mg/dL (NEGATIVE) H 10/29/19 19:10 Urine Glucose (UA) 50 mg/dL (NEGATIVE) H 10/29/19 19:10 Urine Ketones NEGATIVE mg/dL (NEGATIVE) 10/29/19 19:10 Urine Blood NEGATIVE (NEGATIVE) 10/29/19 19:10 Urine Nitrite (Reflex) NEGATIVE (NEGATIVE) 10/29/19 19:10 Urine Bilirubin NEGATIVE (NEGATIVE) 10/29/19 19:10 Urine Urobilinogen NEGATIVE mg/dL (<2.0) 10/29/19 19:10 Leukocyte Esterase Rfl NEGATIVE (NEGATIVE) 10/29/19 19:10 Urine RBC (Auto) 0 /HPF 10/29/19 19:10 Urine WBC (Reflex) 2 /HPF 10/29/19 19:10 Squamous Epi Cells Auto 1 /HPF 10/29/19 19:10 Urine Mucus (Auto) RARE /LPF 10/29/19 19:10 Urine Ascorbic Acid 40 (NEGATIVE) H 10/29/19 19:10 Urine Opiates Screen NEGATIVE 10/29/19 19:10 Urine Methadone Screen NEGATIVE 10/29/19 19:10 Ur Barbiturates Screen NEGATIVE 10/29/19 19:10 Ur Phencyclidine Scrn NEGATIVE 10/29/19 19:10 Ur Amphetamines Screen NEGATIVE 10/29/19 19:10 U Benzodiazepines Scrn NEGATIVE 10/29/19 19:10 Urine Cocaine Screen NEGATIVE 10/29/19 19:10 U Marijuana (THC) Screen UNCONFIRMED POSITIVE 10/29/19 19:10 COVID-19 Source NASOPHARYNGEAL 10/29/19 15:35 COVID-19 (SAMM) NOT DETECTED 10/29/19 15:35 Blood Type O POSITIVE 10/29/19 16:59 Antibody Screen NEGATIVE 10/29/19 16:59 10/29/19 13:15 Troponin I 0.050 NT-Pro-B Natriuret Pep 16 Impressions: Chest X-Ray 10/29/19 00:00 IMPRESSION: HAZY AIRSPACE DISEASE THROUGHOUT BOTH LUNGS. Chest/Abdomen CTA 10/29/19 00:00 IMPRESSION: 1. No evidence of pulmonary embolus. 2. Commonly reported imaging features of COVID 19 pneumonia are present. Other processes such as influenza pneumonia and organizing pneumonia, as can be seen with drug toxicity and connective tissue disease, can cause similar imaging pattern. [PneTyp] 3. Pneumomediastinum also raises a question of COVID 19 as the etiology. If there is high clinical concern for esophageal injury then consider water-soluble esophagram or repeat CT of the chest following oral administration of water-soluble contrast. Esophagus X-Ray 10/30/19 00:00 IMPRESSION: NORMAL SINGLE CONTRAST SWALLOW, WITHOUT EVIDENCE FOR CONTRAST EXTRAVASATION. Plan Time Spent: Less than 30 Minutes Stroke Is this a Stroke Patient?: No Acute Heart Failure - Is this a Heart Failure Patient?: No
[2019-10-31 16:29] VITALS: BP 135/79
== END 2019-10-31 17:21 | disposition home or self-care (01) | DRG 917 ==
LOC: ER 12:58 → EH 14:41 → 3W 22:56
PROVIDERS: ADMIT Internal Medicine; ATTEND Internal Medicine
DX: T40.2X1A Poisoning by other opioids, accidental (unintentional), initial encounter (principal); J96.01 Acute respiratory failure with hypoxia; J69.0 Pneumonitis due to inhalation of food and vomit; K92.0 Hematemesis; F12.10 Cannabis abuse, uncomplicated; F11.10 Opioid abuse, uncomplicated; F17.210 Nicotine dependence, cigarettes, uncomplicated; Y92.018 Other place in single-family (private) house as the place of occurrence of the external cause; Z20.828 Contact with and (suspected) exposure to other viral communicable diseases
CPT/HCPCS: 36415; 71045; 71275; 74220; 80048; 80053; 80307; 81001; 82803; 83605; 83735; 83880; 84100; 84484; 85025; 85027; 85610; 85730; 86850; 86900; 86901; 87040; 87635; 93005; 93010; 94660; 96365; 96368; 96375; 99285; C9113; C9803; J0295; J0456; J1100; J1940; J2543; J3370; J3490; J7050